=== PATIENT | male | born 1960 | race Caucasian/White ===

== ENCOUNTER 2020-04-17 00:12 | Inpatient (IN) | payer OTHER ==
[~2020-04-17] VITALS: Ht 182.9 cm; Wt 98.2 kg
[2020-04-17] MEDS ORDERED: DIAZEPAM 5 MG/ML, 2ML ONE ×4 (00:57→04:12)
--- NOTE | 2020-04-17 01:00 | NUR ---
LATE ENTRY SUMMARY NOTE FOR 010: THIS PT CAME FROM [place] WHERE HE WAS BIB HIS SISTER AFTER HAVING A GLF WITH HEAD TRAUMA. PT HAS A HX OF ETOH. PER PAPERWORK SENT WITH PT FROM [place], PT HAD BEEN BECOMING INCREASINGLY CONFUSED AND AGGRESSIVE. PT WAS IN [facility] FOR 3 DAYS. PT WAS MEDICATED THERE WHEN PT BECAME MORE AGRESSIVE AND STARTED PULLING AT HIS LINES. PT WAS SENT FROM [place] AFTER 3 DAYS FOR PERSISTENT DT'S. PT PRESENTED HERE WITH VISIBILE TREMORS, TACHY WITH A HR 90S-100S, SEEN HIGH 120S APPROX 3 MINUTES PRIOR TO MEDICATING. SLIGHTLY HYPERTENSIVE AT 130S/ HIGH 80S. PT IS ORIENTED TO SELF, KNOWS WHAT YEAR IT IS BUT OTHERWISE MAKES INAPPROPRIATE STATEMENTS. PT IS INCONTINENT EVIDENCE BY DIAPPER. PT WAS IMMEDIATELY CONNECTED TO CARDIAC, BP AND O2 MONITORS. SIDERAILS UP X2, IN ROOM CLOSE TO NURSES STATION FOR CLOSE MONITORING.
--- NOTE | 2020-04-17 01:15 | NUR ---
break rn: pt laying in bed ciwa score 46, all monitors on pt
[2020-04-17] MEDS ORDERED: DIAZEPAM 5 MG/ML, 2ML IV ONE ×2 (01:30→03:00)
[2020-04-17] MEDS ORDERED: THIAMINE 100MG TABLET PO ONE (01:30)
[2020-04-17] MEDS ORDERED: THIAMINE 100MG TABLET ONE (01:45)
[2020-04-17 02:05] LABS: BASOPHILS # (AUTO) 0.03 x10^3/uL (0-0.1); BASOPHILS % (AUTO) 0 % (0-1); EOSINOPHILS # (AUTO) 0.07 x10^3/uL (0-0.4); EOSINOPHILS % (AUTO) 1 % (1-7); LYMPHOCYTES # (AUTO) 1.35 x10^3/uL (1-3.4); LYMPHOCYTES % (AUTO) 13 % (22-44); MD NO; MEAN CORPUSCULAR HEMOGLOBIN 33.7 pg (27.5-34.5); MEAN CORPUSCULAR HGB CONC 34.1 g/dL (33.2-36.2); MEAN CORPUSCULAR VOLUME 98.8 fL (81-97); MEAN PLATELET VOLUME 7.2 fL (7.4-10.4); MONOCYTES # (AUTO) 0.76 x10^3/uL (0.2-0.8); MONOCYTES % (AUTO) 8 % (2-9); NEUTROPHILS # (AUTO) 7.89 x10^3/uL (1.8-6.8); NEUTROPHILS % (AUTO) 78 % (42-75); PLATELET COUNT 171 x10^3/uL (130-400); RED BLOOD COUNT 4.57 x10^6/uL (4.38-5.82); RED CELL DISTRIBUTION WIDTH 14.9 % (9.4-14.8)
[2020-04-17 02:18] LABS: ANION GAP 15 mmol/L (5-15); CALCIUM 8.8 mg/dL (8.5-10.1); CHLORIDE 108 mmol/L (98-107)
[2020-04-17 02:21] LABS: ALANINE AMINOTRANSFERASE 33 U/L (12-78); ALKALINE PHOSPHATASE 102 U/L (45-117); BILIRUBIN,TOTAL 1.2 mg/dL (0.2-1.0); CREATININE 0.99 mg/dL (0.7-1.3); TOTAL PROTEIN 6.8 g/dL (6.4-8.2)
--- NOTE | 2020-04-17 02:31 | NUR ---
pt to t3 from room one, assumed care of pt report from thomas liu, pt moved as pt icu pt, pt awaiting icu bed at this time
--- NOTE | 2020-04-17 03:30 | NUR ---
PT CONTINUES SHAKING TRYING TO PULL MONITORS OFF AND TRYING TO PULL HIMSELF OUT OF BED, DR BRAVO AWARE MEDS ORDERED
--- NOTE | 2020-04-17 03:55 | NUR ---
pt resting at this time with eyes closed with out shaking at this time
--- NOTE | 2020-04-17 04:03 | NUR ---
[facility]
[2020-04-17] MEDS: PLEASE ENTER ALLERGIES MC SCH ×3 (04:30→20:30)
[2020-04-17] MEDS ORDERED: DIAZEPAM 5 MG/ML, 10ML VIAL IV ONE (04:30)
--- NOTE | 2020-04-17 04:49 | NUR ---
admiting md at bs
[2020-04-17] MEDS ORDERED: HALOPERIDOL 5 MG/ML IVPush PRN (05:00)
[2020-04-17] MEDS ORDERED: LORazepam 2 MG/ML, 1ML IV PRN ×5 (05:00)
[2020-04-17] MEDS ORDERED: LABETALOL 5MG/ML, 20ML IVPush PRN (05:00)
[2020-04-17] MEDS ORDERED: ONDANSETRON 2MG/ML, 2ML IVPush PRN (05:00)
[2020-04-17 05:08] LABS: BASOPHILS # (AUTO) 0.02 x10^3/uL (0-0.1); BASOPHILS % (AUTO) 0 % (0-1); EOSINOPHILS # (AUTO) 0.08 x10^3/uL (0-0.4); EOSINOPHILS % (AUTO) 1 % (1-7); LYMPHOCYTES # (AUTO) 1.48 x10^3/uL (1-3.4); LYMPHOCYTES % (AUTO) 14 % (22-44); MD NO; MEAN CORPUSCULAR HEMOGLOBIN 33.9 pg (27.5-34.5); MEAN CORPUSCULAR HGB CONC 33.4 g/dL (33.2-36.2); MEAN CORPUSCULAR VOLUME 101.4 fL (81-97); MONOCYTES # (AUTO) 0.91 x10^3/uL (0.2-0.8); MONOCYTES % (AUTO) 8 % (2-9); NEUTROPHILS # (AUTO) 8.37 x10^3/uL (1.8-6.8); NEUTROPHILS % (AUTO) 77 % (42-75); PLATELET COUNT 166 x10^3/uL (130-400); RED BLOOD COUNT 4.56 x10^6/uL (4.38-5.82); RED CELL DISTRIBUTION WIDTH 15.3 % (9.4-14.8)
--- NOTE | 2020-04-17 05:14 | NUR ---
report to dung pt to icu with carlos and chelo rn on all monitors
[2020-04-17 05:18] LABS: ANION GAP 13 mmol/L (5-15); CALCIUM 8.7 mg/dL (8.5-10.1); CHLORIDE 110 mmol/L (98-107)
[2020-04-17 05:23] LABS: ALANINE AMINOTRANSFERASE 36 U/L (12-78); ALKALINE PHOSPHATASE 100 U/L (45-117); BILIRUBIN,TOTAL 1.2 mg/dL (0.2-1.0); CREATININE 1.04 mg/dL (0.7-1.3); TOTAL PROTEIN 6.7 g/dL (6.4-8.2)
[2020-04-17] MEDS: POTASSIUM CHLORIDE 20 MEQ, MAGNESIUM SULFATE 2 GM, THIAMINE 200 MG, MVI ADULT 10 ML, FO... IV SCH (05:42)
[2020-04-17] MEDS: ENOXAPARIN 40 MG/0.4 ML SQ SCH (05:43)
[2020-04-17 06:20] VITALS: BP 145/92
[2020-04-17] MEDS: CHLORDIAZEPOXIDE 25 MG CAPSULE PO SCH ×3 (08:53→20:57)
[2020-04-17] MEDS: MULTIVITAMINS/MINERALS TABLET PO SCH (08:53)
[2020-04-17] MEDS: PANTOPRAZOLE 40 MG IV IVPush SCH (08:53)
[2020-04-17 14:00] VITALS: BP 120/79
[2020-04-17] MEDS: LORazepam 2 MG/ML, 1ML IVPush PRN (16:59)
[2020-04-17 19:54] VITALS: BP 138/84
[2020-04-18] MEDS: LORazepam 2 MG/ML, 1ML IVPush PRN ×3 (00:01→23:22)
[2020-04-18 00:46] VITALS: BP 128/79
[2020-04-18] MEDS: PLEASE ENTER ALLERGIES MC SCH (04:30)
[2020-04-18 05:06] LABS: ANION GAP 12 mmol/L (5-15); CALCIUM 8.7 mg/dL (8.5-10.1); CHLORIDE 111 mmol/L (98-107); CREATININE 0.81 mg/dL (0.7-1.3)
[2020-04-18] MEDS: POTASSIUM CHLORIDE 20 MEQ, MAGNESIUM SULFATE 2 GM, THIAMINE 200 MG, MVI ADULT 10 ML, FO... IV SCH (05:21)
[2020-04-18] MEDS: ENOXAPARIN 40 MG/0.4 ML SQ SCH (05:21)
[2020-04-18] MEDS ORDERED: POTASSIUM CHLORIDE 20 MEQ TAB.ER.PRT PO ONE (06:30)
[2020-04-18 06:49] VITALS: BP 133/80
[2020-04-18] MEDS: PANTOPRAZOLE 40 MG IV IVPush SCH (08:51)
[2020-04-18] MEDS: CHLORDIAZEPOXIDE 25 MG CAPSULE PO SCH ×3 (08:51→21:13)
[2020-04-18] MEDS: MULTIVITAMINS/MINERALS TABLET PO SCH (08:51)
[2020-04-18] MEDS ORDERED: THIAMINE 100 MG in DEXTROSE 5% 50 ML IVPB SCH (09:00)
[2020-04-18 12:36] VITALS: BP 130/84
[2020-04-18] MEDS ORDERED: ZIPRASIDONE 20 MG INJ IM PRN (15:00)
[2020-04-18 19:43] VITALS: BP 144/83
[2020-04-19 00:17] VITALS: BP 163/99
[2020-04-19] MEDS: LORazepam 2 MG/ML, 1ML IVPush PRN ×5 (03:09→22:58)
[2020-04-19] MEDS: POTASSIUM CHLORIDE 20 MEQ, MAGNESIUM SULFATE 2 GM, THIAMINE 200 MG, MVI ADULT 10 ML, FO... IV SCH (04:24)
[2020-04-19] MEDS: ENOXAPARIN 40 MG/0.4 ML SQ SCH (04:52)
[2020-04-19 06:10] LABS: BASOPHILS # (AUTO) 0.03 x10^3/uL (0-0.1); BASOPHILS % (AUTO) 0 % (0-1); EOSINOPHILS # (AUTO) 0.15 x10^3/uL (0-0.4); EOSINOPHILS % (AUTO) 2 % (1-7); LYMPHOCYTES # (AUTO) 1.59 x10^3/uL (1-3.4); LYMPHOCYTES % (AUTO) 21 % (22-44); MD NO; MEAN CORPUSCULAR HEMOGLOBIN 33.8 pg (27.5-34.5); MEAN CORPUSCULAR HGB CONC 33.7 g/dL (33.2-36.2); MEAN CORPUSCULAR VOLUME 100.4 fL (81-97); MONOCYTES # (AUTO) 0.99 x10^3/uL (0.2-0.8); MONOCYTES % (AUTO) 13 % (2-9); NEUTROPHILS # (AUTO) 4.72 x10^3/uL (1.8-6.8); NEUTROPHILS % (AUTO) 63 % (42-75); PLATELET COUNT 208 x10^3/uL (130-400); RED BLOOD COUNT 4.45 x10^6/uL (4.38-5.82); RED CELL DISTRIBUTION WIDTH 15.1 % (9.4-14.8)
[2020-04-19 06:16] LABS: ANION GAP 10 mmol/L (5-15); CALCIUM 8.6 mg/dL (8.5-10.1); CHLORIDE 110 mmol/L (98-107); CREATININE 0.74 mg/dL (0.7-1.3)
[2020-04-19] MEDS: CHLORDIAZEPOXIDE 25 MG CAPSULE PO SCH ×3 (08:09→20:56)
[2020-04-19] MEDS: PANTOPRAZOLE 40 MG IV IVPush SCH (08:09)
[2020-04-19] MEDS: MULTIVITAMINS/MINERALS TABLET PO SCH (08:09)
[2020-04-19 09:01] VITALS: BP 126/87
[2020-04-19] MEDS: THIAMINE 100MG TABLET PO SCH (11:53)
[2020-04-19] MEDS: FOLIC ACID 1 MG TABLET PO SCH (11:53)
[2020-04-19 13:48] VITALS: BP 127/84
[2020-04-19 19:13] VITALS: BP 132/92
[2020-04-20 00:55] VITALS: BP 159/97
[2020-04-20] MEDS: LORazepam 2 MG/ML, 1ML IVPush PRN ×2 (01:16→05:14)
[2020-04-20] MEDS ORDERED: THIAMINE IV SCH (04:43)
[2020-04-20] MEDS ORDERED: MVI ADULT IV SCH (04:43)
[2020-04-20] MEDS ORDERED: [UNRECOGNIZED DRUG - OTHER] IV SCH (04:43)
[2020-04-20] MEDS ORDERED: POTASSIUM CHLORIDE IV SCH (04:43)
[2020-04-20] MEDS ORDERED: MAGNESIUM SULFATE IV SCH (04:43)
[2020-04-20] MEDS: ENOXAPARIN 40 MG/0.4 ML SQ SCH (04:44)
[2020-04-20 05:48] LABS: ANION GAP 6 mmol/L (5-15); CALCIUM 8.5 mg/dL (8.5-10.1); CHLORIDE 110 mmol/L (98-107)
[2020-04-20 07:14] VITALS: BP 132/86
[2020-04-20] MEDS: THIAMINE 100MG TABLET PO SCH (09:00)
[2020-04-20] MEDS: CHLORDIAZEPOXIDE 25 MG CAPSULE PO SCH (09:24)
[2020-04-20] MEDS: MULTIVITAMINS/MINERALS TABLET PO SCH (09:24)
[2020-04-20] MEDS: FOLIC ACID 1 MG TABLET PO SCH (09:24)
[2020-04-20] MEDS: PANTOPRAZOLE 40 MG IV IVPush SCH (09:24)
[2020-04-20] MEDS ORDERED: INSTRUCTION SEE COMMENTS XX PRN (11:00)
[2020-04-20] MEDS ORDERED: PHARMACY INSTRUCTION MC PRN (11:00)
[2020-04-20 13:31] VITALS: BP 123/81
[2020-04-20] MEDS: CHLORDIAZEPOXIDE 5 MG CAPSULE PO SCH ×2 (15:50→20:30)
[2020-04-20] MEDS ORDERED: CHLORDIAZEPOXIDE 25 MG CAPSULE PO SCH (16:00)
[2020-04-20 19:54] VITALS: BP 131/84
[2020-04-20] MEDS: MELATONIN 3 MG TABLET PO SCH (20:30)
[2020-04-21] MEDS: CHLORDIAZEPOXIDE 5 MG CAPSULE PO SCH ×6 (03:23→23:54)
[2020-04-21 06:28] VITALS: BP 110/71
[2020-04-21] MEDS: THIAMINE 100MG TABLET PO SCH ×2 (09:00→12:07)
[2020-04-21] MEDS: PANTOPRAZOLE 40 MG IV IVPush SCH (09:02)
[2020-04-21] MEDS: FOLIC ACID 1 MG TABLET PO SCH (09:02)
[2020-04-21] MEDS: MULTIVITAMINS/MINERALS TABLET PO SCH (09:02)
[2020-04-21] MEDS: ENOXAPARIN 40 MG/0.4 ML SQ SCH (09:03)
[2020-04-21 12:57] VITALS: BP 101/70
[2020-04-21 18:32] VITALS: BP 108/71
[2020-04-21] MEDS: MELATONIN 3 MG TABLET PO SCH (20:55)
[2020-04-22 06:50] VITALS: BP 98/56
[2020-04-22] MEDS: ENOXAPARIN 40 MG/0.4 ML SQ SCH (07:40)
[2020-04-22] MEDS: THIAMINE 100MG TABLET PO SCH (07:53)
[2020-04-22] MEDS: FOLIC ACID 1 MG TABLET PO SCH (07:53)
[2020-04-22] MEDS: MULTIVITAMINS/MINERALS TABLET PO SCH (07:53)
[2020-04-22] MEDS: PANTOPRAZOLE 40 MG IV IVPush SCH (08:59)
[2020-04-22] MEDS ORDERED: CHLORDIAZEPOXIDE 5 MG CAPSULE PO PRN (09:00)
[2020-04-22] MEDS ORDERED: LORazepam 1MG TABLET PO PRN (09:30)
[2020-04-22] MEDS: PANTOPRAZOLE 40MG TABLET PO SCH (10:01)
[2020-04-22 13:08] VITALS: BP 102/69
[2020-04-22 18:36] VITALS: BP 105/62
[2020-04-22] MEDS: MELATONIN 3 MG TABLET PO SCH (19:44)
[2020-04-22 20:32] VITALS: BP 96/64
[2020-04-22] MEDS: ACETAMINOPHEN 325 MG TABLET PO PRN (22:53)
[2020-04-22 22:55] VITALS: BP 96/62
[2020-04-22 23:53] LABS: TROPONIN I < 0.015 ng/mL (0.000-0.045)
[2020-04-23] MEDS: PANTOPRAZOLE 20MG TABLET PO SCH (05:58)
[2020-04-23 06:00] VITALS: BP 85/44
[2020-04-23] MEDS: PANTOPRAZOLE 40MG TABLET PO SCH (06:05)
[2020-04-23 06:40] LABS: ALANINE AMINOTRANSFERASE 29 U/L (12-78); ALBUMIN 2.5 g/dL (3.4-5.0); ANION GAP 6 mmol/L (5-15); CHLORIDE 107 mmol/L (98-107); CREATININE 0.83 mg/dL (0.7-1.3)
[2020-04-23 06:45] LABS: ALKALINE PHOSPHATASE 73 U/L (45-117); BILIRUBIN,TOTAL 0.5 mg/dL (0.2-1.0); TOTAL PROTEIN 6.3 g/dL (6.4-8.2)
[2020-04-23] MEDS ORDERED: SODIUM CHLORIDE 0.9% 1,000ML IVBOLUS ONE (07:00)
[2020-04-23 07:59] VITALS: BP 92/61
[2020-04-23] MEDS: THIAMINE 100MG TABLET PO SCH (08:15)
[2020-04-23] MEDS: ENOXAPARIN 40 MG/0.4 ML SQ SCH (08:15)
[2020-04-23] MEDS: FOLIC ACID 1 MG TABLET PO SCH (08:16)
[2020-04-23] MEDS: MULTIVITAMINS/MINERALS TABLET PO SCH (08:20)
[2020-04-23] MEDS: LACTATED RINGERS 1,000 ML IV SCH ×2 (08:20→17:41)
[2020-04-23] MEDS: ACETAMINOPHEN 325 MG TABLET PO PRN (11:48)
[2020-04-23 13:05] VITALS: BP 104/65
[2020-04-23 13:19] VITALS: BP 108/70
[2020-04-23 20:28] VITALS: BP 107/62
[2020-04-23] MEDS: MELATONIN 3 MG TABLET PO SCH (22:21)
[2020-04-24] MEDS: LACTATED RINGERS 1,000 ML IV SCH ×3 (02:39→23:00)
[2020-04-24] MEDS: PANTOPRAZOLE 20MG TABLET PO SCH (05:22)
[2020-04-24] MEDS: PANTOPRAZOLE 40MG TABLET PO SCH (06:05)
[2020-04-24] MEDS: ENOXAPARIN 40 MG/0.4 ML SQ SCH (07:30)
[2020-04-24 07:38] VITALS: BP 107/66
[2020-04-24] MEDS: FOLIC ACID 1 MG TABLET PO SCH (08:51)
[2020-04-24] MEDS: THIAMINE 100MG TABLET PO SCH (08:51)
[2020-04-24] MEDS: MULTIVITAMINS/MINERALS TABLET PO SCH (08:51)
[2020-04-24 14:00] VITALS: BP 100/61
[2020-04-24 19:03] VITALS: BP 119/72
[2020-04-24] MEDS: MELATONIN 3 MG TABLET PO SCH (21:09)
[2020-04-25] MEDS: PANTOPRAZOLE 40MG TABLET PO SCH (06:00)
[2020-04-25] MEDS: PANTOPRAZOLE 20MG TABLET PO SCH (06:18)
[2020-04-25 07:21] VITALS: BP 100/64
[2020-04-25] MEDS: THIAMINE 100MG TABLET PO SCH (08:35)
[2020-04-25] MEDS: ENOXAPARIN 40 MG/0.4 ML SQ SCH (08:35)
[2020-04-25] MEDS: MULTIVITAMINS/MINERALS TABLET PO SCH (08:36)
[2020-04-25] MEDS: FOLIC ACID 1 MG TABLET PO SCH (08:36)
[2020-04-25] MEDS: LACTATED RINGERS 1,000 ML IV SCH ×2 (10:18→19:00)
[2020-04-25 12:15] VITALS: BP 127/85
[2020-04-25 20:53] VITALS: BP 101/66
[2020-04-25] MEDS: MELATONIN 3 MG TABLET PO SCH (20:57)
[2020-04-26 00:37] VITALS: BP 105/64
[2020-04-26] MEDS: PANTOPRAZOLE 20MG TABLET PO SCH (05:51)
[2020-04-26] MEDS: PANTOPRAZOLE 40MG TABLET PO SCH (05:51)
[2020-04-26 06:59] VITALS: BP 118/80
[2020-04-26] MEDS: ENOXAPARIN 40 MG/0.4 ML SQ SCH (07:47)
[2020-04-26] MEDS: LACTATED RINGERS 1,000 ML IV SCH (07:48)
[2020-04-26] MEDS: MULTIVITAMINS/MINERALS TABLET PO SCH (09:27)
[2020-04-26] MEDS: THIAMINE 100MG TABLET PO SCH (09:27)
[2020-04-26] MEDS: FOLIC ACID 1 MG TABLET PO SCH (09:27)
== END 2020-04-26 09:40 | disposition home or self-care (01) | DRG 91 ==
LOC: EDBD 00:12 → ED 01:29 → EDIP 01:38 → CCU 05:02 → 3N 13:49
PROVIDERS: ADMIT Hospitalist; ATTEND Internal Medicine
DX: G92 Toxic encephalopathy (principal); E43 Unspecified severe protein-calorie malnutrition; E87.2 Acidosis; F10.231 Alcohol dependence with withdrawal delirium; D72.829 Elevated white blood cell count, unspecified; D75.89 Other specified diseases of blood and blood-forming organs; E16.2 Hypoglycemia, unspecified; E87.8 Other disorders of electrolyte and fluid balance, not elsewhere classified; G31.84 Mild cognitive impairment of uncertain or unknown etiology; Z78.1 Physical restraint status; Z56.0 Unemployment, unspecified; Z68.29 Body mass index [BMI] 29.0-29.9, adult; Z79.899 Other long term (current) drug therapy; Y90.8 Blood alcohol level of 240 mg/100 ml or more
CPT/HCPCS: 36415; 96374; 99291; J7042; 80048; 80053; 80307; 82140; 82607; 83735; 84100; 84484; 85025; 87081; 93005; G0378; J1650; J3360; J3411; J3475; J3480; J3486; 92523-GN; C9113; J2060; J7120